=== PATIENT | female | born 1955 | race Caucasian/White ===

== ENCOUNTER 2016-05-17 19:42 | Emergency (ER) | payer BC ==
[~2016-05-17] VITALS: Ht 165.1 cm; Wt 62.1 kg
[~2016-05-17 19:42] MED LIST: ALBU1AER9 INH; ATV/1 PO; CALCTAB65 PO; CYAN100020 PO; MULTTAB58 PO; NSNN50 NAE; ZOLP10TA PO
[2016-05-17 19:48] VITALS: TEMP 36.6; Ht 165.1 cm; Wt 62.1 kg
[2016-05-17] MEDS ORDERED: ASPIRIN 324 MG CHEW PO STA (20:01)
--- NOTE | 2016-05-17 20:03 | EMERGENCY ROOM VISIT NOTE ---
History Report prepared by Bette: Alexis Spencer Under the Supervision of: Dr. Stanford Randolph M.D. First contact with patient: 19:54 Chief Complaint: CARDIAC ASSESSMENT Stated Complaint: CHEST TIGHTNESS/PAIN History of Present Illness The patient is a 60 year old female who presents to the Emergency Room for a cardiac assessment. The patient is experiencing centralized chest pressure that began yesterday. She notes that she was moving boxes in her house two days ago. Her pressure has increased to a pain that began today an hour ago, today. The patient currently has a headache. She states that her pain does not radiate to any other area of her body. Her pain worsens when she leans forward. She denies any nausea, vomiting, diarrhea, shortness of breath, calf pain, or leg edema. She has not traveled recently. She takes Lorazepam secondary to Anxiety. Source of History: patient Onset: 1 hour ago Position: chest Quality: pressure Timing: worsening Modifying Factors (Worsening): movement (bending forward) Associated Symptoms: + headache, No SOB, No diarrhea, No nausea, No vomiting Review of Systems See HPI for pertinent positives & negatives. A total of 10 systems reviewed and were otherwise negative. Past Medical & Surgical Medical Problems: (1) Anxiety Family History Cancer Heart disease Hypertension Social History Smoking Status: Current Every Day Smoker (1/2 pack a day) Alcohol Use: occasionally Marital Status: Housing Status: lives with family Occupation Status: employed Current/Historical Medications Scheduled Calcium Carbonate-Vitamin D (Calcium 500 + D), 2 TAB PO DAILY Cyanocobalamin (Vitamin B-12), 500 MCG PO DAILY Loratadine (Claritin), 10 MG PO DAILY Lorazepam (Lorazepam), 0.25 MG PO DAILY Multiple Vitamins W/ Minerals (Emergen-C Five), 1 PKT PO DAILY Probiotic Product (Digestive Advantage), 1 CAP PO DAILY Allergies Coded Allergies: No Known Allergies (Unverified , 09/11/14) Physical Exam Vital Signs Date Time Temp Pulse Resp B/P Pulse Ox O2 Delivery O2 Flow Rate FiO2 05/17/16 22:54 66 16 137/82 97 Room Air 05/17/16 21:28 66 18 115/73 95 Room Air 05/17/16 20:33 83 16 135/79 95 Room Air 05/17/16 20:30 80 18 149/93 97 Room Air 05/17/16 20:28 72 4/8/17 19:48 36.6 84 18 149/90 97 Room Air Physical Exam GENERAL: Patient is mildly anxious appearing and in mild acute distress. HEENT: No acute trauma, normocephalic atraumatic, mucous membranes moist, no nasal congestion, no scleral icterus. NECK: No stridor, no adenopathy, no meningismus, trachea is midline. LUNGS: No dyspnea. Clear to auscultation and equal bilaterally. No wheeze, no rhonchi. HEART: Regular rate and rhythm. No murmurs, rubs, gallops appreciated. ABDOMEN: Soft, nontender, bowel sounds positive, no masses appreciated, no peritonitis. BACK: No midline tenderness, no CVA tenderness EXTREMITIES: Normal motion all extremities, no cyanosis, no edema. NEUROLOGIC: Alert and oriented, no acute motor or sensory deficits, no focal weakness, cranial nerves grossly intact. SKIN: No rash, no jaundice, no diaphoresis. Medical Decision & Procedures ER Provider Diagnostic Interpretation: X ray results are stated below per my interpretation and the radiologist's interpretation. CHEST ONE VIEW PORTABLE CLINICAL HISTORY: Atypical chest pain COMPARISON STUDY: 08/09/2015 FINDINGS: The cardiac and mediastinal contours are normal. There is no evidence of focal pulmonary consolidation. There is no evidence of failure. No pleural effusions are visualized.[ IMPRESSION: No active disease in the chest. Electronically signed by: Juvencio Lira M.D. 05/17/2016 8:12 PM Dictated Date/Time: 05/17/2016 8:12 PM Laboratory Results 05/17/16 20:15 Red Blood Count 4.72, Mean Corpuscular Volume 92.4, Mean Corpuscular Hemoglobin 31.6, Mean Corpuscular Hemoglobin Concent 34.2, Mean Platelet Volume 8.8, Neutrophils (%) (Auto) 50.7, Lymphocytes (%) (Auto) 39.8, Monocytes (%) (Auto) 6.8, Eosinophils (%) (Auto) 2.1, Basophils (%) (Auto) 0.5, Neutrophils # (Auto) 4.05, Lymphocytes # (Auto) 3.18, Monocytes # (Auto) 0.54, Eosinophils # (Auto) 0.17, Basophils # (Auto) 0.04 05/17/16 20:15 Test 05/17/16 20:15 05/17/16 22:07 White Blood Count 7.99 K/uL (4.8-10.8) Red Blood Count 4.72 M/uL (4.2-5.4) Hemoglobin 14.9 g/dL (12.0-16.0) Hematocrit 43.6 % (37-47) Mean Corpuscular Volume 92.4 fL (80-100) Mean Corpuscular Hemoglobin 31.6 pg (25-34) Mean Corpuscular Hemoglobin Concent 34.2 g/dl (32-36) Platelet Count 227 K/uL (130-400) Mean Platelet Volume 8.8 fL (7.4-10.4) Neutrophils (%) (Auto) 50.7 % Lymphocytes (%) (Auto) 39.8 % Monocytes (%) (Auto) 6.8 % Eosinophils (%) (Auto) 2.1 % Basophils (%) (Auto) 0.5 % Neutrophils # (Auto) 4.05 K/uL (1.4-6.5) Lymphocytes # (Auto) 3.18 K/uL (1.2-3.4) Monocytes # (Auto) 0.54 K/uL (0.11-0.59) Eosinophils # (Auto) 0.17 K/uL (0-0.5) Basophils # (Auto) 0.04 K/uL (0-0.2) RDW Standard Deviation 44.3 fL (36.4-46.3) RDW Coefficient of Variation 13.0 % (11.5-14.5) Immature Granulocyte % (Auto) 0.1 % Immature Granulocyte # (Auto) 0.01 K/uL (0.00-0.02) Anion Gap 7.0 mmol/L (3-11) Est Creatinine Clear Calc Drug Dose 74.6 ml/min Estimated GFR () 103.5 Estimated GFR (Non- 89.3 BUN/Creatinine Ratio 13.5 (10-20) Calcium Level 9.1 mg/dl (8.5-10.1) Troponin I < 0.015 ng/ml (0-0.045) Bedside Troponin I 0.000 ng/ml (0-0.045) Laboratory results as reviewed by me. Medications Administered Medications (Trade) Dose Ordered Sig/Alex Route Start Time Stop Time Status Last Admin Dose Admin Aspirin (Aspirin Chew) 324 mg NOW STAT PO 05/17/16 20:01 05/17/16 20:03 DC 05/17/16 20:01 324 MG ECG Indication: chest pain Rate (beats per minute): 76 Rhythm: normal sinus Findings: PAC, no acute ischemic change ED Course 1953: The patient was evaluated in room A3. A complete history and physical exam was performed. 2000: Ordered Aspirin 324 PO 2014: Ordered Nitroglycerin 0.4 mg SL 2117: She notified me that she does not want to stay overnight in the hospital. She is willing to stay for a second fast-acting Troponin test. 2237: The patient feels fine at this time and would like to go home. Her troponin was negative. 2241: Reevaluated the patient. Discussed results and discharge instructions: She verbalized understanding and agreement. The patient is ready for discharge. Medical Decision Differential: Cardiac Ischemia (STEMI, NSTEMI, Unstable Angina, etc), Aortic Dissection, Arrhythmia, Pulmonary Embolism, Pneumonia, Pneumothorax, MSK, Infectious, Pericarditis/Myocarditis, Esophageal Rupture, Gastrointestinal, amongst other pathologies entertained. 60 yr old female with history of smoking and father with [place] in 40s. She has had 1 day of substernal chest pressure. Admits quite anxious and worked-up over the last 2 weeks due to being ill which has lead to poor appetite and lack of sleep. Feeling well now without further pain several hours post asa /nitro. Discussed bringing in for cardiac rule out and evaluation though she states she can not stay as she must get home. Admits that she feels well and is willing to stay for second set. Second trop negative and patient feeling well. Reviewed RTED instructions. Stressed PCP follow up 48 hours. No evidence of dissection, PE, nor infection. I feel ACS is low but she is still at risk thus reason I advised staying. Impression Primary Impression: Substernal chest pain Scribe Attestation The scribe's documentation has been prepared under my direction and personally reviewed by me in its entirety. I confirm that the note above accurately reflects all work, treatment, procedures, and medical decision making performed by me. Departure Information Dispostion Home / Self-Care Referrals Juan Diego Chery M.D. (PCP) Forms IMPORTANT VISIT INFORMATION Patient Instructions Chest Pain - [facility], My [facility] Additional Instructions It is very important you follow up with your primary care provider to discuss your symptoms as soon as possible.
--- NOTE | 2016-05-17 20:14 | DIAGNOSTIC IMAGING REPORT ---
CHEST ONE VIEW PORTABLE CLINICAL HISTORY: Atypical chest pain COMPARISON STUDY: 08/09/2015 FINDINGS: The cardiac and mediastinal contours are normal. There is no evidence of focal pulmonary consolidation. There is no evidence of failure. No pleural effusions are visualized.[ IMPRESSION: No active disease in the chest. Electronically signed by: Juvencio Lira M.D. 05/17/2016 8:12 PM Dictated Date/Time: 05/17/2016 8:12 PM
[2016-05-17] MEDS ORDERED: NITROGLYCERIN 0.4 MG SL PER TAB CHARGE SL PRN (20:15)
[2016-05-17 20:30] LABS: BASO % 0.5 %; BASO ABS # 0.04 K/uL (0-0.2); COMPLETE YES; EOS % 2.1 %; HEMATOCRIT 43.6 % (37-47); IG% 0.1 %; LYMPH % 39.8 %; LYMPH ABS # 3.18 K/uL (1.2-3.4); MEAN CELL VOLUME 92.4 fL (80-100); MEAN CORPUSCULAR HEMOGLOBIN 31.6 pg (25-34); MEAN CORPUSCULAR HGB CONC 34.2 g/dl (32-36); MEAN PLATELET VOLUME 8.8 fL (7.4-10.4); MONO % 6.8 %; NEUT % 50.7 %; PLATELET COUNT 227 K/uL (130-400); RED BLOOD COUNT 4.72 M/uL (4.2-5.4); WHITE BLOOD COUNT 7.99 K/uL (4.8-10.8)
[2016-05-17 20:50] LABS: BLOOD UREA NITROGEN 10 mg/dl (7-18); BUN/CREATININE RATIO 13.5 (10-20); CALCIUM 9.1 mg/dl (8.5-10.1); CARBON DIOXIDE 29 mmol/L (21-32); CHLORIDE 106 mmol/L (98-107); CREATININE 0.74 mg/dl (0.60-1.20); GLUCOSE 86 mg/dl (70-99); POTASSIUM 3.6 mmol/L (3.5-5.1); SODIUM 142 mmol/L (136-145)
[2016-05-17] MEDS ORDERED: CLR10 PO (21:32)
[2016-05-17] MEDS ORDERED: ATV5X PO (21:32)
[2016-05-17] MEDS ORDERED: PROB1CAP93 PO (21:33)
[2016-05-17] MEDS ORDERED: CYAN250T PO (21:34)
[2016-05-17] MEDS ORDERED: CALC1CHW57 PO ×2 (21:35→21:37)
[2016-05-17] MEDS ORDERED: MULT1PAK PO (21:38)
[2016-05-17 22:54] VITALS: BP 137/82; PULSE 66; O2SAT 97
[2016-06-27] MEDS ORDERED: ATV/1 PO (11:11)
[2016-06-27] MEDS ORDERED: ASCA500 PO (11:12)
[2016-06-27] MEDS ORDERED: FAMO20TA11 PO (11:12)
[2016-06-27] MEDS ORDERED: MULT-506 PO (11:12)
[2016-06-27] MEDS ORDERED: PROB1CAP93 PO (11:12)
== END 2016-05-17 22:55 | disposition home or self-care (01) ==
LOC: C.EDB 19:43 → C.EDA 22:55
DX: R07.2 Precordial pain (principal); F41.9 Anxiety disorder, unspecified; Z82.49 Family history of ischemic heart disease and other diseases of the circulatory system; F17.200 Nicotine dependence, unspecified, uncomplicated

== ENCOUNTER 2016-07-08 08:00 | Emergency (ER) | payer BC ==
[~2016-07-08] VITALS: Ht 165.1 cm; Wt 62.5 kg
[~2016-07-08 08:00] MED LIST changes: -ALBU1AER9 INH; +ASCA500 PO; -CYAN100020 PO; +CYAN250T PO; +FAMO20TA11 PO; +MULT-506 PO; +MULT1PAK PO; -MULTTAB58 PO; -NSNN50 NAE; +PROB1CAP93 PO; -ZOLP10TA PO
[2016-07-08 08:05] VITALS: TEMP 36.6; Ht 165.1 cm; Wt 62.5 kg
[2016-07-08 08:12] VITALS: O2SAT 98
[2016-07-08] MEDS ORDERED: ASPIRIN 81 MG CHEW PO STA (08:30)
--- NOTE | 2016-07-08 08:30 | EMERGENCY ROOM VISIT NOTE ---
History Report prepared by Bette: Pricilla Farias Under the Supervision of: Dr. Sherry Restrepo M.D. First contact with patient: 08:16 Chief Complaint: CHEST PAIN Stated Complaint: CHEST PAINS, PAIN IN RT ARM Nursing Triage Summary: Patient reports epigastric pain that started around 0720 this morning while smoking. Patient also has pain in the right arm. Denies any cardiac history also denies any shortness of breath, nausea or diaphoresis. Pain is worse with movement but is not reproducable with palpation Patient states she did not take aspirin took a dose of pepcid AC History of Present Illness The patient is a 60 year old female who presents to the Emergency Room with complaints of constant chest pain beginning 1 hour ago. The patient states that she was smoking a cigarette when the pain started suddenly. She reports that she smokes every morning before work and has about 3-4 cigarettes throughout the day. She complains of the pain radiating into the right arm and notes that she was not able to open the car door on her way here due to chest pain. The patient denies any shortness of breath, nausea, leg swelling, and diaphoresis. She states that breathing worsens the pain. She notes that she has no known medial problems or history of blood clots. The patient reports that her father had a heart attack when he was 40. She notes that she took Lorazepam and Pepcid with no relief of her symptoms. She notes that this has happened before but she is not sure what was wrong. Source of History: patient Onset: 1 hour ago Position: chest Timing: constant Modifying Factors (Worsening): breathing Associated Symptoms: No SOB, No diaphoresis, No nausea Note: The patient complains of right arm pain. Pt denies leg pain. Review of Systems See HPI for pertinent positives & negatives. A total of 10 systems reviewed and were otherwise negative. Past Medical & Surgical Medical Problems: (1) Anxiety Family History Cancer Heart disease Hypertension Social History Smoking Status: Current Every Day Smoker Alcohol Use: occasionally Marital Status: Housing Status: lives with family Occupation Status: employed Current/Historical Medications Scheduled Ascorbic Acid (Vitamin C), 1 TAB PO QAM Cyanocobalamin (Vitamin B-12), 500 MCG PO QAM Famotidine (Pepcid), 20 MG PO QAM Lorazepam (Ativan), 1 MG PO QAM Multivitamin (Multivitamin), 1 TAB PO QAM Probiotic Product (Digestive Advantage), 1 CAP PO QAM Scheduled PRN Calcium Carbonate-Vitamin D (Calcium 500 + D), 2 TAB PO DAILY PRN for PRN Multiple Vitamins W/ Minerals (Emergen-C Five), 1 PKT PO DAILY PRN for PRN Allergies Coded Allergies: No Known Allergies (Unverified , 07/08/16) Physical Exam Vital Signs Date Time Temp Pulse Resp B/P Pulse Ox O2 Delivery O2 Flow Rate FiO2 07/08/16 12:57 73 16 107/66 95 07/08/16 10:58 66 07/08/16 10:46 98 16 116/69 98 Room Air 07/08/16 09:30 64 20 101/78 96 Room Air 07/08/16 08:30 79 20 137/87 98 Room Air 07/08/16 08:14 87 07/08/16 08:12 98 Room Air 07/08/16 08:09 99 Room Air 07/08/16 08:05 36.6 86 18 157/83 96 Room Air Physical Exam Vital signs reviewed. General: Well-appearing, in no significant distress. HEENT: No scleral icterus, PERRLA, neck supple. Atraumatic. Cardiovascular: Regular rate and rhythm, no extra sounds. Pulmonary: Crackles at the right base, normal work of breathing. Abdomen: Soft, nontender, nondistended, positive bowel sounds. Musculoskeletal: Atraumatic, no peripheral edema. Tender to palpation over the right anterior chest and right back, pain with deep inspiration. Neurologic: Patient awake alert and oriented x 3, full strength in all 4 extremities. Cranial nerves 2 through 12 grossly intact. Skin: Warm, dry, no rash Medical Decision & Procedures ER Provider Diagnostic Interpretation: X-ray results as stated below per interpretation by me and the radiologist: CHEST ONE VIEW PORTABLE FINDINGS: Lung volumes are normal. Lungs are clear. There is no pneumothorax or pleural effusion. Cardiac size is normal. Mediastinal contours are normal. There is no evidence of pulmonary edema. IMPRESSION: No acute cardiopulmonary findings. Electronically signed by: Patrice Espinoza M.D. 07/08/2016 9:05 AM Dictated Date/Time: 07/08/2016 9:02 AM Laboratory Results 07/08/16 08:18 Red Blood Count 4.72, Mean Corpuscular Volume 93.2, Mean Corpuscular Hemoglobin 30.5, Mean Corpuscular Hemoglobin Concent 32.7, Mean Platelet Volume 8.5, Neutrophils (%) (Auto) 59.8, Lymphocytes (%) (Auto) 30.5, Monocytes (%) (Auto) 7.4, Eosinophils (%) (Auto) 1.7, Basophils (%) (Auto) 0.5, Neutrophils # (Auto) 4.45, Lymphocytes # (Auto) 2.27, Monocytes # (Auto) 0.55, Eosinophils # (Auto) 0.13, Basophils # (Auto) 0.04 07/08/16 08:18 Test 07/08/16 08:18 07/08/16 10:34 07/08/16 10:45 White Blood Count 7.45 K/uL (4.8-10.8) Red Blood Count 4.72 M/uL (4.2-5.4) Hemoglobin 14.4 g/dL (12.0-16.0) Hematocrit 44.0 % (37-47) Mean Corpuscular Volume 93.2 fL (80-100) Mean Corpuscular Hemoglobin 30.5 pg (25-34) Mean Corpuscular Hemoglobin Concent 32.7 g/dl (32-36) Platelet Count 254 K/uL (130-400) Mean Platelet Volume 8.5 fL (7.4-10.4) Neutrophils (%) (Auto) 59.8 % Lymphocytes (%) (Auto) 30.5 % Monocytes (%) (Auto) 7.4 % Eosinophils (%) (Auto) 1.7 % Basophils (%) (Auto) 0.5 % Neutrophils # (Auto) 4.45 K/uL (1.4-6.5) Lymphocytes # (Auto) 2.27 K/uL (1.2-3.4) Monocytes # (Auto) 0.55 K/uL (0.11-0.59) Eosinophils # (Auto) 0.13 K/uL (0-0.5) Basophils # (Auto) 0.04 K/uL (0-0.2) RDW Standard Deviation 47.0 fL (36.4-46.3) RDW Coefficient of Variation 13.7 % (11.5-14.5) Immature Granulocyte % (Auto) 0.1 % Immature Granulocyte # (Auto) 0.01 K/uL (0.00-0.02) D-Dimer < 190 ug/L FEU (0-500) Anion Gap 7.0 mmol/L (3-11) Est Creatinine Clear Calc Drug Dose 69.8 ml/min Estimated GFR () 95.6 Estimated GFR (Non- 82.5 BUN/Creatinine Ratio 14.6 (10-20) Calcium Level 9.2 mg/dl (8.5-10.1) Total Bilirubin 0.9 mg/dl (0.2-1) Direct Bilirubin 0.2 mg/dl (0-0.2) Aspartate Amino Transf (AST/SGOT) 22 U/L (15-37) Alanine Aminotransferase (ALT/SGPT) 28 U/L (12-78) Alkaline Phosphatase 100 U/L (45-117) Total Creatine Kinase 71 U/L (26-192) Creatine Kinase MB 0.7 ng/ml (0.5-3.6) Creatine Kinase MB Ratio 1.0 (0-3.0) Total Protein 6.7 gm/dl (6.4-8.2) Albumin 3.7 gm/dl (3.4-5.0) Bedside Troponin I 0.000 ng/ml (0-0.045) Urine Color YELLOW Urine Appearance CLEAR (CLEAR) Urine pH 5.5 (4.5-7.5) Urine Specific [place] 1.009 (1.000-1.030) Urine Protein NEG (NEG) Urine Glucose (UA) NEG (NEG) Urine Ketones NEG (NEG) Urine Occult Blood NEG (NEG) Urine Nitrite NEG (NEG) Urine Bilirubin NEG (NEG) Urine Urobilinogen NEG (NEG) Urine Leukocyte Esterase NEG (NEG) Laboratory results per my review. Medications Administered Medications (Trade) Dose Ordered Sig/Alex Route Start Time Stop Time Status Last Admin Dose Admin Aspirin (Aspirin Chew) 324 mg NOW STAT PO 07/08/16 08:30 07/08/16 08:34 DC 07/08/16 08:55 324 MG ECG Indication: chest pain Rate (beats per minute): 86 Rhythm: normal sinus Findings: LAFB, no acute ischemic change, no ectopy ED Course 0816: Past medical records reviewed. The patient was evaluated in room B11B. A complete history and physical examination was performed. 0830: Aspirin 324mg PO. 1215: I reevaluated the patient and updated her. 1243: Upon reevaluation, the patient appeared to have improvement of her symptoms. I discussed findings with the patient. She verbalized agreement of the treatment plan. The patient was discharged home. Medical Decision Chest pain: Acute coronary syndrome, pulmonary embolus, aortic dissection, musculoskeletal pain, pneumonia, pleural effusion, pneumothorax Blood Pressure Screening: Patient was found to have normal blood pressure on screening and does not require follow-up. Medication Reconciliation: I attest that I have personally reviewed the patient' s current medication list. This patient was evaluated and appeared to be in no significant distress. IV access was obtained and laboratory work was drawn. Patient was given 324 mg of aspirin to chew. Patient's cardiac enzymes are negative 2. Chest x-ray is clear. D-dimer is negative. Patient's EKG reveals a left anterior fascicular block, with no evidence of acute ischemia. I did review my findings with the patient and her . She did not have a stress test since the last episode just over a month ago. She is sent for colonoscopy tomorrow which I believe she is stable to have. This does not appear to be ischemic cardiac, this is likely pleuritic chest pain potentially related to her smoking. She will return to the ER for worsening of symptoms or any medical concerns. Impression Primary Impression: Pleuritic chest pain Scribe Attestation The scribe's documentation has been prepared under my direction and personally reviewed by me in its entirety. I confirm that the note above accurately reflects all work, treatment, procedures, and medical decision making performed by me. Departure Information Dispostion Home / Self-Care Referrals Juan Diego Chery M.D. (PCP) Forms HOME CARE DOCUMENTATION FORM, IMPORTANT VISIT INFORMATION Patient Instructions My [facility] Additional Instructions Diagnosis: Pleuritic chest pain Please continue medications as prescribed. Drink plenty of clear fluids. Please stop smoking. Ibuprofen 600 mg every 6 hours as needed for pain with food. Do not take until after your colonoscopy tomorrow. Follow-up with your primary care physician this week for reevaluation and consideration of further cardiac testing as indicated. Return to the ER for worsening of symptoms or any medical concerns.
[2016-07-08 08:46] LABS: BASO % 0.5 %; BASO ABS # 0.04 K/uL (0-0.2); COMPLETE YES; EOS % 1.7 %; IG% 0.1 %; LYMPH % 30.5 %; LYMPH ABS # 2.27 K/uL (1.2-3.4); MEAN CELL VOLUME 93.2 fL (80-100); MEAN CORPUSCULAR HEMOGLOBIN 30.5 pg (25-34); MEAN CORPUSCULAR HGB CONC 32.7 g/dl (32-36); MEAN PLATELET VOLUME 8.5 fL (7.4-10.4); MONO % 7.4 %; NEUT % 59.8 %; PLATELET COUNT 254 K/uL (130-400); RED BLOOD COUNT 4.72 M/uL (4.2-5.4); WHITE BLOOD COUNT 7.45 K/uL (4.8-10.8)
[2016-07-08 08:56] LABS: BUN/CREATININE RATIO 14.6 (10-20); CREATININE 0.79 mg/dl (0.60-1.20); POTASSIUM 3.9 mmol/L (3.5-5.1)
--- NOTE | 2016-07-08 09:06 | DIAGNOSTIC IMAGING REPORT ---
CHEST ONE VIEW PORTABLE CLINICAL HISTORY: Right-sided chest pain. Smoker. COMPARISON STUDY: Chest radiograph May 17, 2016. FINDINGS: Lung volumes are normal. Lungs are clear. There is no pneumothorax or pleural effusion. Cardiac size is normal. Mediastinal contours are normal. There is no evidence of pulmonary edema. IMPRESSION: No acute cardiopulmonary findings. Electronically signed by: Patrice Espinoza M.D. 07/08/2016 9:05 AM Dictated Date/Time: 07/08/2016 9:02 AM
[2016-07-08 09:09] LABS: CALCIUM 9.2 mg/dl (8.5-10.1)
[2016-07-08 11:05] LABS: URINE APPEARANCE CLEAR (CLEAR); URINE BILIRUBIN NEG (NEG); URINE COLOR YELLOW; URINE NITRITE NEG (NEG); URINE PH 5.5 (4.5-7.5); URINE SPECIFIC GRAVITY 1.009 (1.000-1.030); UROBILINOGEN NEG (NEG); ZZUR CULT IF INDIC CLEAN CATCH NO
[2016-07-08 11:30] LABS: MANUAL MICROSCOPIC REQUIRED? NO; REVIEW REQ? NO
[2016-07-08 12:57] VITALS: BP 107/66; PULSE 73; O2SAT 95
== END 2016-07-08 13:01 | disposition home or self-care (01) ==
LOC: C.EDB 08:03
DX: R07.81 Pleurodynia (principal); F41.9 Anxiety disorder, unspecified; F17.200 Nicotine dependence, unspecified, uncomplicated; Z79.899 Other long term (current) drug therapy; Z80.9 Family history of malignant neoplasm, unspecified; Z82.49 Family history of ischemic heart disease and other diseases of the circulatory system

== ENCOUNTER → 2016-07-09 | Day surgery (SDC) | payer BC ==
[2016-06-27 11:12] VITALS: Ht 165.1 cm; Wt 60.0 kg
[~2016-07-09] VITALS: Ht 165.1 cm; Wt 60.0 kg
[~2016-07-09] MED LIST changes: +LIDOCAINE HCL 2% 2 ML VIAL (20MG/ML) ONE; +PROPOFOL IV EMULSION 10 MG/ML 20 ML VIAL IV ONE; +SODIUM CHLORIDE 0.9% 500ML 500 ML IV ONE
--- NOTE | 2016-07-09 10:29 | Endo History and Physical ---
History & Physical Date of Service: July 09, 2016. Chief Complaint: History of benign polyps Referring Physician: Dr. Juan Diego Chery History of Present Illness 60 yo CF who presents for colonoscopy secondary to history of polyps. Past Surgical History Hx Cardiac Surgery: No Hx Internal Defibrillator: No Hx Pacemaker: No Hx Abdominal Surgery: No Hx of Implantable Prosthesis: No Hx Post-Op Nausea and Vomiting: No Hx Cancer Surgery: No Hx Thoracic Surgery: No Hx Orthopedic: No Hx Urinary Tract Surgery: No Family History None Social History Smoking Status: Current Every Day Smoker Hx Substance Use: No Hx Alcohol Use: Yes (OCCASIONAL) Allergies Coded Allergies: No Known Allergies (Verified , 07/09/16) Current Medications Reported Home Medications Medications Dose Route/Sig Max Daily Dose Days Date Category Multivitamin (Multivitamins) Tab 1 Tab PO QAM 06/27/16 Reported Pepcid (Famotidine) 20 Mg Tab 20 Mg PO QAM 06/27/16 Reported Vitamin C (Ascorbic Acid) 500 Mg Tab 1 Tab PO QAM 06/27/16 Reported Digestive Advantage (Probiotic Product) 1 Cap Cap 1 Cap PO QAM 06/27/16 Reported Ativan (Lorazepam) 1 Mg Tab 1 Mg PO QAM 06/27/16 Reported Emergen-C Five (Multiple Vitamins W/ Minerals) 1 Shivam Shivam 1 Pkt PO DAILY PRN 05/17/16 Reported Vitamin B-12 (Cyanocobalamin) 250 Mcg Tab 500 Mcg PO QAM 05/17/16 Reported Calcium 500 + D (Calcium Carbonate-Vitamin D) 1 Tab Tab 2 Tab PO DAILY PRN 09/11/14 Reported Vital Signs Weight (Kilograms): 60 Height (Feet): 5 Height (Inches): 5 Date Time Temp Pulse Resp B/P Pulse Ox O2 Delivery O2 Flow Rate FiO2 07/09/16 10:11 36.7 77 18 118/68 97 Room Air Physical Exam General Appearance: WD/WN, no apparent distress Respiratory/Chest: Auscultation: breath sounds normal Cardiovascular: Heart Auscultation: RRR Abdomen: Bowel Sounds: normal Inspection & Palpation: soft, non-distended, no tenderness, guarding & rebound Assessment and Plan Assessment: 60 yo CF who presents for colonoscopy secondary to history of polyps. Plan: Proceed with colonoscopy.
--- NOTE | 2016-07-09 10:55 | Discharge Instructions ---
Endoscopy Patient Instructions Date / Procedure(s) Performed July 09, 2016. Colonoscopy Allergy Information Coded Allergies: No Known Allergies (Verified , 07/09/16) Discharge Date / Findings July 09, 2016. Colon polyps Diverticulosis Internal hemorrhoids Medication Instructions Stopped Medication(s): Patient only took her ativan this am. OK to resume all medications today as prescribed Reported Home Medications Medications Dose Route/Sig Max Daily Dose Days Date Category Multivitamin (Multivitamins) Tab 1 Tab PO QAM 06/27/16 Reported Pepcid (Famotidine) 20 Mg Tab 20 Mg PO QAM 06/27/16 Reported Vitamin C (Ascorbic Acid) 500 Mg Tab 1 Tab PO QAM 06/27/16 Reported Digestive Advantage (Probiotic Product) 1 Cap Cap 1 Cap PO QAM 06/27/16 Reported Ativan (Lorazepam) 1 Mg Tab 1 Mg PO QAM 06/27/16 Reported Emergen-C Five (Multiple Vitamins W/ Minerals) 1 Shivam Shivam 1 Pkt PO DAILY PRN 05/17/16 Reported Vitamin B-12 (Cyanocobalamin) 250 Mcg Tab 500 Mcg PO QAM 05/17/16 Reported Calcium 500 + D (Calcium Carbonate-Vitamin D) 1 Tab Tab 2 Tab PO DAILY PRN 09/11/14 Reported Provider Instructions Activity Restrictions - No exercising or heavy lifting for 24 hours. - Do not drink alcohol the day of the procedure. - Do not drive a car or operate machinery until the day after the procedure. - Do not make any important decisions or sign important papers in 24 hours after the procedure. Following Day: - Return to full activity which may include returning to work/school. Diet Start your diet with liquids and light foods (jello, soup, juice, toast). Then eat your usual diet if not nauseated. Treatment For Common After Affects For mild abdominal pain, bloating, or excessive gas: - Rest - Eat lightly - Lie on right side Follow-Up Information Follow-up with Dr. Juan Diego Chery as scheduled Anesthesia Information What You Should Know You have had a procedure that required some medicine to reduce anxiety and discomfort. This treatment is called moderate sedation. After receiving the treatment, you may be sleepy, but you will be able to breathe on your own. The effects of the treatment may last for several hours. Follow these instructions along with Activity/Diet recommendations noted above: * Do NOT do anything where dizziness or clumsiness would be dangerous. * Rest quietly at home today, then you can be up and about tomorrow. * Have a responsible person stay with you the rest of today. * You may have had an I.V. today. If so, you may take the dressing off later today. Recommendations Call your doctor if: * Trouble breathing * Continuous vomiting for more than 24 hours * Temperature above 101 degrees * Severe abdominal pain or bloating * Pain not relieved by pain medicine ordered * There is increased drainage or redness from any incision * A large amount of rectal bleeding greater than 2-3 tablespoons. (If you had a polyp/s removed or have hemorrhoids, a small amount of blood - from the rectum is to be expected.) * You have any unanswered questions or concerns. IN THE EVENT OF A SERIOUS EMERGENCY, GO TO THE NEAREST EMERGENCY ROOM Your discharge instructions were prepared by provider Sebastien Grimaldo. Patient Instructions Signature Page Kia Whelan Patient (or Guardian) Signature/Date: I have read and understand the instructions given to me by my caregivers. Caregiver/RN/Doctor Signature/Date: The above-named patient and/or guardian has received patient instructions on this date. + Original Patient Signature Page (only) stays with chart. Please make copy for patient.
--- NOTE | 2016-07-09 11:03 | GI REPORT ---
Procedure Date: 07/09/2016 10:34 AM Procedure: Colonoscopy Indications: High risk colon cancer surveillance: Personal history of colonic polyps Medicines: Monitored Anesthesia Care Complications: No immediate complications. Estimated Blood Loss: Estimated blood loss: none. Procedure: Pre-Anesthesia Assessment: - Prior to the procedure, a History and Physical was performed, and patient medications and allergies were reviewed. The patient's tolerance of previous anesthesia was also reviewed. The risks and benefits of the procedure and the sedation options and risks were discussed with the patient. All questions were answered, and informed consent was obtained. Prior Anticoagulants: The patient has taken no previous anticoagulant or antiplatelet agents. ASA Grade Assessment: II - A patient with mild systemic disease. After reviewing the risks and benefits, the patient was deemed in satisfactory condition to undergo the procedure. After I obtained informed consent, the scope was passed under direct vision. Throughout the procedure, the patient's blood pressure, pulse, and oxygen saturations were monitored continuously. The scope was introduced through the anus and advanced to the terminal ileum. The colonoscopy was performed without difficulty. The patient tolerated the procedure well. The quality of the bowel preparation was good. The terminal ileum, ileocecal valve, appendiceal orifice, and rectum were photographed. Findings: Two sessile polyps were found in the sigmoid colon. The polyps were 5 to 6 mm in size. These polyps were removed with a hot snare. Resection and retrieval were complete. Multiple small-mouthed diverticula were found in the sigmoid colon. Non-bleeding internal hemorrhoids were found during retroflexion. The hemorrhoids were small. Impression: - Two 5 to 6 mm polyps in the sigmoid colon, removed with a hot snare. Resected and retrieved. - Diverticulosis in the sigmoid colon. - Non-bleeding internal hemorrhoids. Recommendation: - Resume previous diet. - Continue present medications. - Repeat colonoscopy for surveillance based on pathology results. - Return to primary care physician as previously scheduled. Sebastien Grimaldo, DO 07/09/2016 11:02:51 AM This report has been signed electronically. Note Initiated On: 07/09/2016 10:34 AM I attest to the content of the Intraoperative Record and orders documented therein, exceptions below
[2016-07-09 11:28] VITALS: BP 111/71; PULSE 67; O2SAT 98
--- NOTE | 2016-07-09 11:29 | Anesthesiology Progress Note ---
Anesthesia Post Op Note Date & Time July 09, 2016 at 11:29 Vital Signs Pain Intensity: 0 Vital Signs Past 12 Hours Date Time Temp Pulse Resp B/P Pulse Ox O2 Delivery O2 Flow Rate FiO2 07/09/16 11:28 67 18 111/71 98 Room Air 07/09/16 11:10 66 18 100/60 95 Room Air 07/09/16 10:53 71 18 94/58 96 Room Air 07/09/16 10:11 36.7 77 18 118/68 97 Room Air Notes Mental Status: alert / awake / arousable, participated in evaluation Pt Amnestic to Procedure: Yes Nausea / Vomiting: adequately controlled Pain: adequately controlled Airway Patency, RR, SpO2: stable & adequate BP & HR: stable & adequate Hydration State: stable & adequate Anesthetic Complications: no major complications apparent
== END | disposition home or self-care (01) ==
LOC: C.GI 09:53
PROVIDERS: ATTEND Internal Medicine
DX: Z12.11 Encounter for screening for malignant neoplasm of colon (principal); D12.5 Benign neoplasm of sigmoid colon; K57.30 Diverticulosis of large intestine without perforation or abscess without bleeding; K64.8 Other hemorrhoids; Z86.010 Personal history of colon polyps; F17.210 Nicotine dependence, cigarettes, uncomplicated; Z79.899 Other long term (current) drug therapy

== ENCOUNTER → 2016-11-08 | Outpatient (CLI) | payer BC ==
[~2016-11-08] MED LIST changes: -LIDOCAINE HCL 2% 2 ML VIAL (20MG/ML) ONE; -PROPOFOL IV EMULSION 10 MG/ML 20 ML VIAL IV ONE; -SODIUM CHLORIDE 0.9% 500ML 500 ML IV ONE
--- NOTE | 2016-11-08 09:55 | DIAGNOSTIC IMAGING REPORT ---
CHEST 2 VIEWS ROUTINE CLINICAL HISTORY: 60 years-old Female presenting with cough. TECHNIQUE: PA and lateral views of the chest were obtained. COMPARISON: 07/08/2016. FINDINGS: Cardiomediastinal silhouette normal. Mild hyperinflation. Lungs and pleural spaces clear. Osseous structures normal. Upper abdomen normal. IMPRESSION: 1. Mild hyperinflation. Otherwise no acute cardiopulmonary disease. Electronically signed by: Juan Diego Hernandez M.D. 11/08/2016 9:54 AM Dictated Date/Time: 11/08/2016 9:52 AM
== END | disposition home or self-care (01) ==
LOC: C.LABBC 09:12
PROVIDERS: ATTEND Physician Assistant
DX: R05 Cough (principal)